=== PATIENT | female | born 1960 | race African-American/Black ===

== ENCOUNTER 2019-11-15 07:22 | Emergency (ER) | payer OTHER ==
[~2019-11-15] VITALS: Ht 160 cm; Wt 60.8 kg
--- NOTE | 2019-11-15 07:30 | NUR ---
ED Nurse Note: PT walked in to ED for C/O itchiness with foul odor discharge from her vagina x 3 weeks.
[2019-11-15 07:40] VITALS: BP 157/118
--- NOTE | 2019-11-15 07:40 | NUR ---
ED Nurse Note: Urine sample collected and sent to lab
[2019-11-15] MEDS ORDERED: Azithromycin 250mg tab ORAL ONE (07:45)
[2019-11-15] MEDS ORDERED: Lidocaine 1% MPF 10mg/ml 5ml INJ ONE (07:45)
[2019-11-15] MEDS ORDERED: metroNIDAZOLE 500mg tab ORAL ONE (07:45)
--- NOTE | 2019-11-15 07:54 | Emergency Room Report ---
History of Present Illness General Chief Complaint: Vaginal Source: Patient Present Illness HPI Disclaimer: Please note that this report is being documented using DRAGON technology. This can lead to erroneous entry secondary to incorrect interpretation by the dictating instrument. HPI: 59-year-old female presents for evaluation of vaginal discomfort. She notes pain with intercourse over the past 2 weeks, intermittent discharge though says this is minimal. Denies bleeding but reports foul vaginal odor. No prior history of PID. Denies fever, chills, abdominal pain, nausea, vomiting , diarrhea or other changes in her health. She presents with a sexual partner who is exhibiting similar symptoms. Reports unprotected sex within the past month. Patient is postmenopausal PMH: Denies PSH: Reviewed Allergies: Denies Social Hx: Denies Allergies: Coded Allergies: No Known Allergies (Unverified , 11/15/19) COVID-19 Screening Contact w/high risk pt: No Recent Travel to affected area: No Experienced COVID-19 symptoms?: No COVID-19 Testing performed COMMUNICATIONS ADMINISTRATOR: No Patient History Now: No Nursing Documentation-PMH Past Medical History: No History, Except For Review of Systems All Other Systems: negative except mentioned in HPI Physical Exam Vital Signs Date Time Temp Pulse Resp B/P (MAP) Pulse Ox O2 Delivery O2 Flow Rate FiO2 11/15/19 07:27 97.9 75 15 160/121 (134) 95 Room Air General: Awake and alert, no acute distress HEENT: NC/AT. EOMI. Resp: Normal work of breathing Abdomen: Soft, nontender, nondistended Skin: Intact. No abrasions, laceration or rash over the exposed skin MSK: Normal tone and bulk. Moving all extremities. No obvious deformity. Neuro: Awake and alert. Mentating appropriately Medical Decision Making Diagnostic Impression: Primary Impression: Cervicitis ER Course 59-year-old female presents for evaluation of vaginal discomfort. Differential includes but is not limited to urethritis, cervicitis, UTI, pyelonephritis, STD. She presents with sexual partner exhibiting similar symptoms making sexual transmitted infection less likely. Patient was treated empirically with ceftriaxone, azithromycin and Flagyl. Instructed not to drink alcohol after taking Flagyl due to disulfiram-like reaction. Urinalysis does not suggest an acute urinary tract infection. Patient will be referred to outpatient STD testing. Discussed reasons to return to the emergency department. Understands and agrees with this treatment plan. Laboratory Tests Test 11/15/19 07:38 Urine Color Pale yellow Urine Appearance Clear Urine pH 8 (4.5-8.0) Urine Specific [place] 1.015 (1.005-1.035) Urine Protein Negative (NEGATIVE) Urine Glucose (UA) Negative (NEGATIVE) Urine Ketones Negative (NEGATIVE) Urine Blood Negative (NEGATIVE) Urine Nitrite Negative (NEGATIVE) Urine Bilirubin Negative (NEGATIVE) Urine Urobilinogen Normal MG/DL (0.0-1.0) Urine Leukocyte Esterase Negative (NEGATIVE) Last Vital Signs Date Time Temp Pulse Resp B/P (MAP) Pulse Ox O2 Delivery O2 Flow Rate FiO2 11/15/19 07:40 98.0 73 16 157/118 96 Room Air Disposition: HOME, SELF-CARE Condition: Stable Tarik Kendall MD November 15, 2019 07:54
--- NOTE | 2019-11-15 07:54 | NUR ---
ED Nurse Note: medication given as ordered. pt tolerated well.
[2019-11-15 08:18] LABS: APPEARANCE,URINE CLEAR; BILIRUBIN, URINE NEGATIVE (NEGATIVE); COLOR,URINE PALE YELLOW; GLUCOSE, URINE (UA) NEGATIVE (NEGATIVE); KETONES,URINE NEGATIVE (NEGATIVE); LEUKOCYTE ESTERASE ,URINE NEGATIVE (NEGATIVE); NITRITE,URINE NEGATIVE (NEGATIVE); PH,URINE 8 (4.5-8.0); PROTEIN,URINE NEGATIVE (NEGATIVE); UROBILINOGEN,URINE NORMAL MG/DL (0.0-1.0)
[2019-11-15 08:32] VITALS: BP 160/105
--- NOTE | 2019-11-15 08:32 | NUR ---
ER DISCHARGE NOTE: Patient is cleared to be discharged per ERMD, pt is aox4, on room air, with stable vital signs. pt was given dc and prescription instructions, pt was able to verbalize understanding, pt id band removed without complications. pt is able to ambulate with steady gait. pt took all belongings.
== END 2019-11-15 08:32 | disposition home or self-care (01) ==
LOC: EMR 07:51
DX: N72 Inflammatory disease of cervix uteri (principal)
CPT/HCPCS: 81003; 96372; J0696; Q0144; Z7502; 99283